=== PATIENT | male | born 1965 | race African-American/Black ===

== ENCOUNTER 2022-10-27 06:04 | Inpatient (IN) | payer OTHER ==
[~2022-10-27] VITALS: Ht 172.7 cm; Wt 78.9 kg
[2022-10-27] MEDS ORDERED: SODIUM CHLORIDE 0.9% 1000ML 1,000 ML IV STA (06:17)
[2022-10-27] MEDS ORDERED: DICYCLOMINE HCL 20 MG/2 ML VIAL IM ONE (06:30)
[2022-10-27] MEDS: ONDANSETRON HCL INJ 2MG/ML 2ML 2 MG/ML VIAL IV PRN ×2 (06:40→09:55)
[2022-10-27 06:52] LABS: BASOPHILS # (AUTO) 0.1 (0.0-0.1); BASOPHILS % 0.4 % (0.0-1.0); EOSINOPHILS # (AUTO) 0.1 (0.0-0.4); EOSINOPHILS % 0.6 % (0.0-6.0); HEMATOCRIT 35.4 % (38.2-49.6); HEMOGLOBIN 11.8 g/dL (14.0-18.0); LYMPHOCYTES % 5.4 % (18.0-39.1); MEAN CORPUSCULAR HEMOGLOBIN 29.1 pg (28-32); MEAN CORPUSCULAR HGB CONC 33.3 g/dL (31-35); MEAN CORPUSCULAR VOLUME 87.4 fL (81-99); MONOCYTES # (AUTO) 1.1 (0.2-0.8); MONOCYTES % 5.6 % (4.4-11.3); NEUTROPHILS # (AUTO) 16.6 (2.1-6.9); NEUTROPHILS % 87.5 % (38.7-80.0); PLATELET COUNT 180 x10e3/uL (140-360); RED BLOOD COUNT 4.05 x10e6/uL (4.3-5.7); RED CELL DISTRIBUTION WIDTH 13.8 % (11.7-14.4)
[2022-10-27 07:07] LABS: ALBUMIN 3.2 g/dL (3.5-5.0); ALBUMIN/GLOBULIN RATIO 0.8 (0.8-2.0); ANION GAP 19.9 mmol/L (8-16); CALCIUM 8.9 mg/dL (8.4-10.2); CREATININE, SERUM 2.29 mg/dL (0.72-1.25); POTASSIUM 3.9 mmol/L (3.5-5.1)
[2022-10-27 07:10] LABS: CLARITY,URINE CLEAR (CLEAR); COLOR,URINE YELLOW (YELLOW); LEUKOCYTE ESTERASE ,URINE NEGATIVE (NEGATIVE); NITRITE,URINE NEGATIVE (NEGATIVE)
[2022-10-27 07:11] LABS: KETONES,URINE TRACE (NEGATIVE); PROTEIN,URINE DIPSTICK >=300 (NEGATIVE); URINE UROBILINOGEN 0.2 mg/dL (0.2 - 1)
[2022-10-27 07:34] LABS: RBC,URINE 0-5 /HPF (0-5); WBC,URINE (MAN) 0-5 /HPF (0-5)
[2022-10-27 07:35] LABS: BACTERIA,URINE MODERATE /HPF; EPITHELIAL CELLS,URINE RARE /LPF
[2022-10-27] MEDS: FENTANYL CITRATE/PF 100MCG/2 ML INJ IV PRN ×2 (08:02→12:01)
[2022-10-27] MEDS ORDERED: PIPERACILLIN/TAZOBACTAM 4.5 GM in SODIUM CHLORIDE 0.9% 100 ML IV STA (09:19)
[2022-10-27] MEDS ORDERED: SODIUM CHLORIDE 0.9% 1000ML 1,000 ML IV SCH (09:45)
[2022-10-27] MEDS ORDERED: LACTATED RINGER'S 1,000 ML INJ ONE (09:45)
[2022-10-27] MEDS ORDERED: ONDANSETRON HCL INJ 2MG/ML 2ML 2 MG/ML VIAL IV PRN (09:45)
[2022-10-27] MEDS: Morphine 4mg INJECTION 4 MG/ML INJ IV PRN ×4 (09:55→23:03)
[2022-10-27] MEDS: LACTATED RINGER'S 1,000 ML INJ SCH ×4 (09:55→23:03)
[2022-10-27] MEDS ORDERED: IOPAMIDOL 370 MG/ML 100 ML INFUS..BTL INJ ONE (11:51)
[2022-10-27 12:40] VITALS: BP 155/81
[2022-10-27] MEDS ORDERED: FUROSEMIDE40 MG PO (12:40)
[2022-10-27] MEDS ORDERED: CHOLECALCIFEROL1 GM PO (12:40)
[2022-10-27] MEDS ORDERED: SODIUM BICARBO650 MG PO (12:40)
[2022-10-27] MEDS ORDERED: SULFASALAZINE500 MG PO (12:40)
[2022-10-27] MEDS ORDERED: ATORVASTATIN CA20 MG PO (12:40)
[2022-10-27] MEDS ORDERED: CARVEDILOL12.5 MG PO (12:40)
[2022-10-27] MEDS ORDERED: AMLODIPINE BESY10 MG PO (12:41)
[2022-10-27] MEDS ORDERED: LOSARTAN POTAS100 MG PO (12:41)
[2022-10-27 13:18] VITALS: BP 155/81
[2022-10-27 16:00] VITALS: BP 153/82
[2022-10-27 20:00] VITALS: BP 156/83
[2022-10-27 21:00] VITALS: BP 156/83
[2022-10-28] VITALS (7 sets, daily range): BP systolic 100–132; BP diastolic 65–82
[2022-10-28 02:29] LABS: % IRON SATURATION 11 % (15-50); IRON 26 ug/dL (65-175); TOTAL IRON BINDING CAPACITY 234 ug/dL (261-478); TRANSFERRIN 167 mg/dL (174-364)
[2022-10-28] MEDS ORDERED: CYANOCOBALAMIN INJ 1,000 MCG/ML VIAL IM ONE (03:30)
[2022-10-28] MEDS: LACTATED RINGER'S 1,000 ML INJ SCH ×2 (04:02→05:49)
[2022-10-28 05:12] LABS: BASOPHILS # (AUTO) 0.1 (0.0-0.1); BASOPHILS % 0.4 % (0.0-1.0); EOSINOPHILS % 0.1 % (0.0-6.0); HEMATOCRIT 31.3 % (38.2-49.6); HEMOGLOBIN 10.7 g/dL (14.0-18.0); LYMPHOCYTES # (AUTO) 0.6 (1.0-3.2); LYMPHOCYTES % 2.7 % (18.0-39.1); MEAN CORPUSCULAR HEMOGLOBIN 29.6 pg (28-32); MEAN CORPUSCULAR HGB CONC 34.2 g/dL (31-35); MEAN CORPUSCULAR VOLUME 86.7 fL (81-99); MONOCYTES # (AUTO) 0.8 (0.2-0.8); MONOCYTES % 3.8 % (4.4-11.3); NEUTROPHILS # (AUTO) 18.9 (2.1-6.9); NEUTROPHILS % 92.4 % (38.7-80.0); PLATELET COUNT 125 x10e3/uL (140-360); RED BLOOD COUNT 3.61 x10e6/uL (4.3-5.7); RED CELL DISTRIBUTION WIDTH 14.3 % (11.7-14.4)
[2022-10-28 05:35] LABS: ANION GAP 18.2 mmol/L (8-16); CALCIUM 7.5 mg/dL (8.4-10.2); CREATININE, SERUM 2.23 mg/dL (0.72-1.25); POTASSIUM 4.2 mmol/L (3.5-5.1)
[2022-10-28 06:02] LABS: BAND NEUTROPHILS % (MANUAL) 5 %; LYMPHOCYTES % (MANUAL) 2 % (19-48); MONOCYTES % (MANUAL) 1 % (3.4-9.0); NEUTROPHILS % (MANUAL) 91 % (40-74); PLATELET ESTIMATE SLIGHTLY DECREASED; PLATELET MORPHOLOGY COMMENT NORMAL; RBC MORPHOLOGY COMMENT NORMAL
[2022-10-28] MEDS: Morphine 4mg INJECTION 4 MG/ML INJ IV PRN ×4 (06:15→23:43)
[2022-10-28] MEDS: SODIUM CHLORIDE 0.45% 1,000 ML IV SCH ×4 (06:46→23:43)
[2022-10-28] MEDS: IRON SUCROSE 100 MG in SODIUM CHLORIDE 0.9% 100 ML IV SCH (08:51)
[2022-10-28] MEDS ORDERED: CYANOCOBALAMIN INJ 1,000 MCG/ML VIAL IM SCH (09:00)
[2022-10-29] MEDS ORDERED: LACTATED RINGER'S 1,000 ML INJ ONE (00:30)
[2022-10-29] MEDS: LACTATED RINGER'S 1,000 ML INJ SCH ×3 (01:02→08:36)
[2022-10-29 04:00] VITALS: BP 110/68
[2022-10-29 06:16] LABS: ANION GAP 18.2 mmol/L (8-16); CREATININE, SERUM 3.57 mg/dL (0.72-1.25); POTASSIUM 4.2 mmol/L (3.5-5.1)
[2022-10-29 06:19] LABS: CALCIUM 6.4 mg/dL (8.4-10.2)
[2022-10-29 07:52] VITALS: BP 103/64
[2022-10-29] MEDS ORDERED: CALCIUM GLUC 1 G/50 ML NACL 100 ML IV ONE ×2 (08:00→11:00)
[2022-10-29] MEDS: IRON SUCROSE 100 MG in SODIUM CHLORIDE 0.9% 100 ML IV SCH (08:35)
[2022-10-29] MEDS: CYANOCOBALAMIN INJ 1,000 MCG/ML VIAL IM SCH (08:35)
[2022-10-29 11:55] VITALS: BP 120/69
[2022-10-29] MEDS ORDERED: CALCIUM GLUC 1 G/50 ML NACL 50 ML IV ONE (15:30)
[2022-10-29 16:23] VITALS: BP 136/70
[2022-10-29] MEDS: PENTOXIFYLLINE 400 MG TAB CR PO SCH (17:15)
[2022-10-29] MEDS: FUROSEMIDE INJ 10 MG/ML 4 ML VIAL IV NR (17:16)
[2022-10-29] MEDS: SODIUM BICARBONATE 650 MG TAB PO SCH ×2 (17:16→21:13)
[2022-10-29] MEDS: ACETYLCYSTEINE 200 MG/ML 4ML VIAL PO SCH (17:17)
[2022-10-29 18:13] LABS: CREATININE,URINE RANDOM 135.86 mg/dL (63-166); SODIUM,URINE 31 mmol/L; TOTAL PROTEIN, URINE 97.2 mg/dL (1-14)
[2022-10-29 20:00] VITALS: BP 136/71
[2022-10-29 20:03] LABS: EOSINOPHIL SMEAR,URINE NONE SEEN (NONE SEEN)
[2022-10-29] MEDS: ZOLPIDEM TARTRATE 5 MG TAB PO PRN (22:45)
[2022-10-30 04:00] VITALS: BP 134/88
[2022-10-30] MEDS: SODIUM BICARBONATE 650 MG TAB PO SCH ×3 (05:31→23:50)
[2022-10-30 06:45] LABS: BASOPHILS # (AUTO) 0.1 (0.0-0.1); BASOPHILS % 0.3 % (0.0-1.0); EOSINOPHILS # (AUTO) 0.1 (0.0-0.4); EOSINOPHILS % 0.4 % (0.0-6.0); HEMOGLOBIN 10.1 g/dL (14.0-18.0); LYMPHOCYTES # (AUTO) 0.6 (1.0-3.2); MEAN CORPUSCULAR HEMOGLOBIN 28.9 pg (28-32); MEAN CORPUSCULAR HGB CONC 31.6 g/dL (31-35); MEAN CORPUSCULAR VOLUME 91.7 fL (81-99); MONOCYTES # (AUTO) 1.1 (0.2-0.8); MONOCYTES % 4.2 % (4.4-11.3); NEUTROPHILS # (AUTO) 24.6 (2.1-6.9); NEUTROPHILS % 91.4 % (38.7-80.0); PLATELET COUNT 151 x10e3/uL (140-360); RED BLOOD COUNT 3.49 x10e6/uL (4.3-5.7); RED CELL DISTRIBUTION WIDTH 14.6 % (11.7-14.4)
[2022-10-30 08:23] LABS: ALBUMIN 1.9 g/dL (3.5-5.0); ALBUMIN/GLOBULIN RATIO 0.4 (0.8-2.0); ANION GAP 19.6 mmol/L (8-16); CREATININE, SERUM 3.77 mg/dL (0.72-1.25); POTASSIUM 3.6 mmol/L (3.5-5.1)
[2022-10-30 08:25] VITALS: BP 130/77
[2022-10-30 08:29] LABS: CALCIUM 6.8 mg/dL (8.4-10.2)
[2022-10-30] MEDS: CYANOCOBALAMIN INJ 1,000 MCG/ML VIAL IM SCH (09:36)
[2022-10-30] MEDS: ACETYLCYSTEINE 200 MG/ML 4ML VIAL PO SCH ×2 (09:36→17:02)
[2022-10-30] MEDS: PENTOXIFYLLINE 400 MG TAB CR PO SCH ×2 (09:37→17:01)
[2022-10-30] MEDS: IRON SUCROSE 100 MG in SODIUM CHLORIDE 0.9% 100 ML IV SCH (09:38)
[2022-10-30] MEDS ORDERED: POTASSIUM CHLORIDE 20 MEQ in LACTATED RINGER'S 1,000 ML INJ SCH (10:30)
[2022-10-30] MEDS ORDERED: FUROSEMIDE INJ 10 MG/ML 4 ML VIAL IV NR (10:30)
[2022-10-30 10:33] LABS: BAND NEUTROPHILS % (MANUAL) 10 %; EOSINOPHILS % (MANUAL) 1 % (0-7); LYMPHOCYTES % (MANUAL) 6 % (19-48); MONOCYTES % (MANUAL) 1 % (3.4-9.0); NEUTROPHILS % (MANUAL) 82 % (40-74); NUCLEATED RED BLOOD CELLS 2; PLATELET ESTIMATE ADEQUATE; PLATELET MORPHOLOGY COMMENT NORMAL
[2022-10-30] MEDS ORDERED: MAGNESIUM SULFATE 2GM/50ML 50 ML IV ONE ×2 (10:45→14:00)
[2022-10-30 11:11] VITALS: BP 132/74
[2022-10-30] MEDS: FUROSEMIDE INJ 10 MG/ML 4 ML VIAL IV NR (11:26)
[2022-10-30] MEDS ORDERED: CALCIUM GLUCONATE 10% INJ 9.3 MEQ in SODIUM CHLORIDE 0.9% 100 ML IV ONE (13:00)
[2022-10-30] MEDS: ALBUMIN 25% 25GM 100ML 0.25 GM/ML BTL IV SCH ×2 (15:20→23:51)
[2022-10-30 15:23] LABS: ANION GAP 22.8 mmol/L (8-16); CREATININE, SERUM 3.62 mg/dL (0.72-1.25); POTASSIUM 3.8 mmol/L (3.5-5.1)
[2022-10-30 15:25] VITALS: BP 163/84
[2022-10-30] MEDS ORDERED: FUROSEMIDE INJ 10 MG/ML 4 ML VIAL IV ONE (16:45)
[2022-10-30] MEDS: POTASSIUM CHLORIDE 20 MEQ in LACTATED RINGER'S 1,000 ML INJ SCH ×2 (18:35→23:54)
[2022-10-30 20:00] VITALS: BP 142/67
[2022-10-30] MEDS: ZOLPIDEM TARTRATE 5 MG TAB PO PRN (23:50)
[2022-10-30] MEDS: ONDANSETRON HCL INJ 2MG/ML 2ML 2 MG/ML VIAL IV PRN (23:50)
[2022-10-31] VITALS (8 sets, daily range): BP systolic 140–158; BP diastolic 72–79
[2022-10-31] MEDS: SODIUM BICARBONATE 650 MG TAB PO SCH ×3 (05:13→22:22)
[2022-10-31 05:31] LABS: BASOPHILS # (AUTO) 0.1 (0.0-0.1); BASOPHILS % 0.3 % (0.0-1.0); EOSINOPHILS # (AUTO) 0.1 (0.0-0.4); EOSINOPHILS % 0.2 % (0.0-6.0); HEMATOCRIT 27.7 % (38.2-49.6); HEMOGLOBIN 8.8 g/dL (14.0-18.0); LYMPHOCYTES # (AUTO) 0.8 (1.0-3.2); LYMPHOCYTES % 2.6 % (18.0-39.1); MEAN CORPUSCULAR HEMOGLOBIN 29.5 pg (28-32); MEAN CORPUSCULAR HGB CONC 31.8 g/dL (31-35); MONOCYTES % 6.8 % (4.4-11.3); NEUTROPHILS # (AUTO) 25.6 (2.1-6.9); NEUTROPHILS % 88.5 % (38.7-80.0); PLATELET COUNT 160 x10e3/uL (140-360); RED BLOOD COUNT 2.98 x10e6/uL (4.3-5.7); RED CELL DISTRIBUTION WIDTH 15.2 % (11.7-14.4)
[2022-10-31 06:06] LABS: ALBUMIN 2.6 g/dL (3.5-5.0); ALBUMIN/GLOBULIN RATIO 0.7 (0.8-2.0); ANION GAP 24.8 mmol/L (8-16); CALCIUM 7.2 mg/dL (8.4-10.2); CREATININE, SERUM 3.35 mg/dL (0.72-1.25); PHOSPHORUS 4.1 MG/DL (2.3-4.7); POTASSIUM 3.8 mmol/L (3.5-5.1)
[2022-10-31 06:44] LABS: BAND NEUTROPHILS % (MANUAL) 2 %; LYMPHOCYTES % (MANUAL) 4 % (19-48); MONOCYTES % (MANUAL) 11 % (3.4-9.0); NEUTROPHILS % (MANUAL) 83 % (40-74); PLATELET ESTIMATE ADEQUATE; PLATELET MORPHOLOGY COMMENT NORMAL; RBC MORPHOLOGY COMMENT NORMAL
[2022-10-31] MEDS: INSULIN GLARGINE 100 UNITS/ML VIAL SQ SCH ×2 (09:00→21:00)
[2022-10-31] MEDS ORDERED: Vancomycin IV 1 GM in SODIUM CHLORIDE 0.9% 250ML 250 ML IV ONE ×2 (09:00→16:30)
[2022-10-31] MEDS: ACETYLCYSTEINE 200 MG/ML 4ML VIAL PO SCH (09:00)
[2022-10-31] MEDS: CYANOCOBALAMIN INJ 1,000 MCG/ML VIAL IM SCH (09:10)
[2022-10-31] MEDS: PENTOXIFYLLINE 400 MG TAB CR PO SCH ×2 (09:10→17:25)
[2022-10-31] MEDS: ALBUMIN 25% 25GM 100ML 0.25 GM/ML BTL IV SCH (09:34)
[2022-10-31] MEDS: CARVEDILOL 12.5 MG TAB PO SCH ×2 (09:43→17:26)
[2022-10-31] MEDS: INSULIN LISPRO 100 UNIT/1 ML 3ML VIAL SQ SCH ×3 (11:30→21:00)
[2022-10-31] MEDS: IRON SUCROSE 100 MG in SODIUM CHLORIDE 0.9% 100 ML IV SCH (12:48)
[2022-10-31] MEDS: POTASSIUM CHLORIDE 20 MEQ in LACTATED RINGER'S 1,000 ML INJ SCH ×2 (17:29→18:48)
[2022-11-01] VITALS (7 sets, daily range): BP systolic 126–149; BP diastolic 63–75
[2022-11-01] MEDS: SODIUM BICARBONATE 650 MG TAB PO SCH ×3 (05:31→23:24)
[2022-11-01] MEDS: POTASSIUM CHLORIDE 20 MEQ in LACTATED RINGER'S 1,000 ML INJ SCH ×2 (05:32→15:00)
[2022-11-01 05:36] LABS: BASOPHILS # (AUTO) 0.1 (0.0-0.1); BASOPHILS % 0.3 % (0.0-1.0); EOSINOPHILS # (AUTO) 0.2 (0.0-0.4); EOSINOPHILS % 0.7 % (0.0-6.0); HEMATOCRIT 27.3 % (38.2-49.6); HEMOGLOBIN 9.3 g/dL (14.0-18.0); LYMPHOCYTES # (AUTO) 0.6 (1.0-3.2); LYMPHOCYTES % 2.7 % (18.0-39.1); MEAN CORPUSCULAR HGB CONC 34.1 g/dL (31-35); MONOCYTES # (AUTO) 1.8 (0.2-0.8); MONOCYTES % 7.8 % (4.4-11.3); NEUTROPHILS # (AUTO) 19.6 (2.1-6.9); NEUTROPHILS % 83.6 % (38.7-80.0); PLATELET COUNT 164 x10e3/uL (140-360); RED BLOOD COUNT 3.21 x10e6/uL (4.3-5.7); RED CELL DISTRIBUTION WIDTH 14.7 % (11.7-14.4)
[2022-11-01 06:12] LABS: ALBUMIN 2.3 g/dL (3.5-5.0); ALBUMIN/GLOBULIN RATIO 0.6 (0.8-2.0); ANION GAP 15.5 mmol/L (8-16); CALCIUM 7.5 mg/dL (8.4-10.2); CREATININE, SERUM 2.5 mg/dL (0.72-1.25); PHOSPHORUS 2.7 MG/DL (2.3-4.7); POTASSIUM 3.5 mmol/L (3.5-5.1)
[2022-11-01 07:06] LABS: BAND NEUTROPHILS % (MANUAL) 2 %; METAMYELOCYTES % (MANUAL) 3 % (0-0); MONOCYTES % (MANUAL) 7 % (3.4-9.0); MYELOCYTES % (MANUAL) 4 % (0-0); NEUTROPHILS % (MANUAL) 84 % (40-74); PLATELET ESTIMATE ADEQUATE; PLATELET MORPHOLOGY COMMENT NORMAL; RBC MORPHOLOGY COMMENT NORMAL
[2022-11-01] MEDS: INSULIN LISPRO 100 UNIT/1 ML 3ML VIAL SQ SCH ×4 (07:30→21:00)
[2022-11-01] MEDS: PENTOXIFYLLINE 400 MG TAB CR PO SCH ×2 (09:17→16:53)
[2022-11-01] MEDS: CARVEDILOL 12.5 MG TAB PO SCH ×2 (09:18→17:04)
[2022-11-01] MEDS: CYANOCOBALAMIN INJ 1,000 MCG/ML VIAL IM SCH (09:18)
[2022-11-01 11:58] LABS: INR 1.21; PROTHROMBIN TIME 15.5 seconds (11.9-14.5)
[2022-11-01] MEDS ORDERED: LIDOCAINE 1% 10 ML MULTIDOSE VIAL IJ ONE (13:52)
[2022-11-01] MEDS ORDERED: SODIUM CHLORIDE 0.9% 250ML 250 ML ONE (13:52)
[2022-11-01] MEDS: IRON SUCROSE 100 MG in SODIUM CHLORIDE 0.9% 100 ML IV SCH (18:06)
[2022-11-01] MEDS ORDERED: DEXTROSE 5%/0.45% SOD CHL 1,000 ML IV ONE ×2 (18:15→19:00)
[2022-11-01] MEDS: INSULIN GLARGINE 100 UNITS/ML VIAL SQ SCH (21:00)
[2022-11-02] VITALS (8 sets, daily range): BP systolic 131–160; BP diastolic 70–82
[2022-11-02] MEDS: POTASSIUM CHLORIDE 20 MEQ in LACTATED RINGER'S 1,000 ML INJ SCH (02:38)
[2022-11-02 05:52] LABS: BASOPHILS # (AUTO) 0.2 (0.0-0.1); BASOPHILS % 0.8 % (0.0-1.0); EOSINOPHILS # (AUTO) 0.2 (0.0-0.4); EOSINOPHILS % 0.9 % (0.0-6.0); HEMATOCRIT 27.6 % (38.2-49.6); HEMOGLOBIN 9.3 g/dL (14.0-18.0); LYMPHOCYTES # (AUTO) 0.9 (1.0-3.2); MEAN CORPUSCULAR HEMOGLOBIN 28.9 pg (28-32); MEAN CORPUSCULAR HGB CONC 33.7 g/dL (31-35); MEAN CORPUSCULAR VOLUME 85.7 fL (81-99); MONOCYTES % 8.5 % (4.4-11.3); NEUTROPHILS # (AUTO) 18.6 (2.1-6.9); NEUTROPHILS % 80.8 % (38.7-80.0); PLATELET COUNT 161 x10e3/uL (140-360); RED BLOOD COUNT 3.22 x10e6/uL (4.3-5.7); RED CELL DISTRIBUTION WIDTH 15.1 % (11.7-14.4)
[2022-11-02] MEDS: SODIUM BICARBONATE 650 MG TAB PO SCH ×3 (06:12→21:25)
[2022-11-02 06:21] LABS: ALBUMIN 2.1 g/dL (3.5-5.0); ALBUMIN/GLOBULIN RATIO 0.5 (0.8-2.0); ANION GAP 18.8 mmol/L (8-16); CALCIUM 7.6 mg/dL (8.4-10.2); CREATININE, SERUM 2.42 mg/dL (0.72-1.25); PHOSPHORUS 3.4 MG/DL (2.3-4.7); POTASSIUM 3.8 mmol/L (3.5-5.1)
[2022-11-02 07:14] LABS: BAND NEUTROPHILS % (MANUAL) 2 %; EOSINOPHILS % (MANUAL) 1 % (0-7); LYMPHOCYTES % (MANUAL) 4 % (19-48); MONOCYTES % (MANUAL) 3 % (3.4-9.0); NEUTROPHILS % (MANUAL) 89 % (40-74)
[2022-11-02 07:15] LABS: PLATELET ESTIMATE ADEQUATE; PLATELET MORPHOLOGY COMMENT NORMAL; RBC MORPHOLOGY COMMENT NORMAL; TOXIC GRANULATION MODERATE
[2022-11-02] MEDS: INSULIN LISPRO 100 UNIT/1 ML 3ML VIAL SQ SCH ×4 (07:30→21:00)
[2022-11-02] MEDS: PENTOXIFYLLINE 400 MG TAB CR PO SCH ×2 (09:54→16:17)
[2022-11-02] MEDS: CARVEDILOL 12.5 MG TAB PO SCH ×2 (09:54→16:17)
[2022-11-02] MEDS: CYANOCOBALAMIN INJ 1,000 MCG/ML VIAL IM SCH (09:54)
[2022-11-02] MEDS: POTASSIUM CHLORIDE 20 MEQ in DEXTROSE 5%/0.45% SOD CHL 1,000 ML IV SCH ×2 (11:39→21:24)
[2022-11-02] MEDS ORDERED: CENTRAL TPN FORMULA 1 BAG IV SCH (20:00)
[2022-11-02] MEDS: INSULIN GLARGINE 100 UNITS/ML VIAL SQ SCH (21:00)
[2022-11-03] VITALS (8 sets, daily range): BP systolic 143–164; BP diastolic 70–83
[2022-11-03 05:34] LABS: BASOPHILS # (AUTO) 0.1 (0.0-0.1); BASOPHILS % 0.3 % (0.0-1.0); EOSINOPHILS # (AUTO) 0.3 (0.0-0.4); EOSINOPHILS % 1.1 % (0.0-6.0); HEMATOCRIT 28.9 % (38.2-49.6); HEMOGLOBIN 9.1 g/dL (14.0-18.0); LYMPHOCYTES % 3.4 % (18.0-39.1); MEAN CORPUSCULAR HGB CONC 31.5 g/dL (31-35); MONOCYTES # (AUTO) 1.7 (0.2-0.8); NEUTROPHILS # (AUTO) 24.7 (2.1-6.9); NEUTROPHILS % 85.3 % (38.7-80.0); PLATELET COUNT 190 x10e3/uL (140-360); RED BLOOD COUNT 3.14 x10e6/uL (4.3-5.7); RED CELL DISTRIBUTION WIDTH 15.5 % (11.7-14.4)
[2022-11-03 05:50] LABS: ALBUMIN 2.2 g/dL (3.5-5.0); ALBUMIN/GLOBULIN RATIO 0.5 (0.8-2.0); ANION GAP 13.4 mmol/L (8-16); CALCIUM 8.2 mg/dL (8.4-10.2); CREATININE, SERUM 2.28 mg/dL (0.72-1.25); PHOSPHORUS 2.4 MG/DL (2.3-4.7); POTASSIUM 4.4 mmol/L (3.5-5.1)
[2022-11-03] MEDS: SODIUM BICARBONATE 650 MG TAB PO SCH ×3 (06:24→23:04)
[2022-11-03] MEDS: INSULIN GLARGINE 100 UNITS/ML VIAL SQ SCH (06:36)
[2022-11-03 06:43] LABS: BAND NEUTROPHILS % (MANUAL) 4 %; EOSINOPHILS % (MANUAL) 2 % (0-7); LYMPHOCYTES % (MANUAL) 6 % (19-48); MONOCYTES % (MANUAL) 3 % (3.4-9.0); NEUTROPHILS % (MANUAL) 85 % (40-74); NUCLEATED RED BLOOD CELLS 1
[2022-11-03 06:44] LABS: PLATELET ESTIMATE ADEQUATE; PLATELET MORPHOLOGY COMMENT NORMAL; RBC MORPHOLOGY COMMENT NORMAL; TOXIC GRANULATION SLIGHT
[2022-11-03] MEDS: INSULIN LISPRO 100 UNIT/1 ML 3ML VIAL SQ SCH ×3 (08:24→16:17)
[2022-11-03] MEDS: PENTOXIFYLLINE 400 MG TAB CR PO SCH ×2 (08:53→17:04)
[2022-11-03] MEDS: CARVEDILOL 12.5 MG TAB PO SCH ×2 (08:53→17:05)
[2022-11-03] MEDS: CYANOCOBALAMIN INJ 1,000 MCG/ML VIAL IM SCH (08:54)
[2022-11-04] VITALS (8 sets, daily range): BP systolic 125–159; BP diastolic 69–82
[2022-11-04 04:59] LABS: BASOPHILS # (AUTO) 0.2 (0.0-0.1); BASOPHILS % 0.5 % (0.0-1.0); EOSINOPHILS # (AUTO) 0.5 (0.0-0.4); EOSINOPHILS % 1.5 % (0.0-6.0); HEMOGLOBIN 8.1 g/dL (14.0-18.0); LYMPHOCYTES # (AUTO) 1.6 (1.0-3.2); LYMPHOCYTES % 4.9 % (18.0-39.1); MEAN CORPUSCULAR HEMOGLOBIN 29.1 pg (28-32); MEAN CORPUSCULAR HGB CONC 33.8 g/dL (31-35); MEAN CORPUSCULAR VOLUME 86.3 fL (81-99); MONOCYTES # (AUTO) 1.9 (0.2-0.8); MONOCYTES % 5.6 % (4.4-11.3); NEUTROPHILS # (AUTO) 27.5 (2.1-6.9); NEUTROPHILS % 83.6 % (38.7-80.0); PLATELET COUNT 155 x10e3/uL (140-360); RED BLOOD COUNT 2.78 x10e6/uL (4.3-5.7); RED CELL DISTRIBUTION WIDTH 14.8 % (11.7-14.4)
[2022-11-04 05:23] LABS: ALBUMIN 1.9 g/dL (3.5-5.0); ALBUMIN/GLOBULIN RATIO 0.5 (0.8-2.0); ANION GAP 11.6 mmol/L (8-16); CREATININE, SERUM 2.08 mg/dL (0.72-1.25); POTASSIUM 3.6 mmol/L (3.5-5.1)
[2022-11-04] MEDS: SODIUM BICARBONATE 650 MG TAB PO SCH ×3 (06:22→20:22)
[2022-11-04] MEDS: INSULIN LISPRO 100 UNIT/1 ML 3ML VIAL SQ SCH ×3 (07:30→16:30)
[2022-11-04] MEDS: INSULIN GLARGINE 100 UNITS/ML VIAL SQ SCH (09:03)
[2022-11-04] MEDS: PENTOXIFYLLINE 400 MG TAB CR PO SCH ×2 (09:08→17:22)
[2022-11-04] MEDS: CYANOCOBALAMIN INJ 1,000 MCG/ML VIAL IM SCH (09:09)
[2022-11-04] MEDS: CARVEDILOL 12.5 MG TAB PO SCH ×2 (09:09→17:22)
[2022-11-05 00:17] VITALS: BP 149/82
[2022-11-05] MEDS: SODIUM BICARBONATE 650 MG TAB PO SCH (05:05)
[2022-11-05 05:40] VITALS: BP 135/67
[2022-11-05 07:13] LABS: BASOPHILS # (AUTO) 0.1 (0.0-0.1); BASOPHILS % 0.2 % (0.0-1.0); EOSINOPHILS # (AUTO) 0.4 (0.0-0.4); EOSINOPHILS % 1.3 % (0.0-6.0); HEMATOCRIT 25.4 % (38.2-49.6); HEMOGLOBIN 8.1 g/dL (14.0-18.0); LYMPHOCYTES # (AUTO) 1.2 (1.0-3.2); MEAN CORPUSCULAR HEMOGLOBIN 28.8 pg (28-32); MEAN CORPUSCULAR HGB CONC 31.9 g/dL (31-35); MEAN CORPUSCULAR VOLUME 90.4 fL (81-99); MONOCYTES # (AUTO) 1.8 (0.2-0.8); NEUTROPHILS # (AUTO) 25.1 (2.1-6.9); NEUTROPHILS % 84.9 % (38.7-80.0); PLATELET COUNT 158 x10e3/uL (140-360); RED BLOOD COUNT 2.81 x10e6/uL (4.3-5.7); RED CELL DISTRIBUTION WIDTH 14.5 % (11.7-14.4)
[2022-11-05 07:35] LABS: ALBUMIN/GLOBULIN RATIO 0.5 (0.8-2.0); ANION GAP 13.4 mmol/L (8-16); CALCIUM 8.2 mg/dL (8.4-10.2); CREATININE, SERUM 2.11 mg/dL (0.72-1.25); POTASSIUM 3.4 mmol/L (3.5-5.1)
[2022-11-05] MEDS ORDERED: ONDANSETRON ODT4 MG PO (07:49)
[2022-11-05] MEDS ORDERED: PANTOPRAZOLE SO40 MG PO (07:49)
[2022-11-05 07:57] VITALS: BP 136/73
[2022-11-05 08:17] VITALS: BP 136/73
[2022-11-05] MEDS: PENTOXIFYLLINE 400 MG TAB CR PO SCH (08:27)
[2022-11-05] MEDS: CARVEDILOL 12.5 MG TAB PO SCH (08:28)
[2022-11-05] MEDS: CYANOCOBALAMIN INJ 1,000 MCG/ML VIAL IM SCH (08:34)
[2022-11-05 12:22] LABS: LYMPHOCYTES % (MANUAL) 4 % (19-48); MONOCYTES % (MANUAL) 5 % (3.4-9.0); NEUTROPHILS % (MANUAL) 91 % (40-74); PLATELET ESTIMATE ADEQUATE
[2022-11-05 12:23] LABS: PLATELET MORPHOLOGY COMMENT NORMAL; RBC MORPHOLOGY COMMENT NORMAL
== END 2022-11-05 09:18 | disposition home or self-care (01) | DRG 439 ==
LOC: ER 06:19 → ERHOLD 09:37 → MED/SURG2 12:11
PROVIDERS: ADMIT Internal Medicine; ATTEND Internal Medicine
PROC: 02HV33Z Insertion of Infusion Device into Superior Vena Cava, Percutaneous Approach (ICD-10-PCS; principal; 2022-11-03)
DX: K85.91 Acute pancreatitis with uninfected necrosis, unspecified (principal); E87.20 Acidosis, unspecified; N17.9 Acute kidney failure, unspecified; N39.0 Urinary tract infection, site not specified; D64.9 Anemia, unspecified; E78.5 Hyperlipidemia, unspecified; E11.22 Type 2 diabetes mellitus with diabetic chronic kidney disease; I12.9 Hypertensive chronic kidney disease with stage 1 through stage 4 chronic kidney disease, or unspecified chronic kidney disease; E11.69 Type 2 diabetes mellitus with other specified complication; E78.2 Mixed hyperlipidemia; K85.21 Alcohol induced acute pancreatitis with uninfected necrosis; F10.20 Alcohol dependence, uncomplicated; Z20.822 Contact with and (suspected) exposure to COVID-19; N18.32 Chronic kidney disease, stage 3b
CPT/HCPCS: 36415; 36556; 71045; 71046; 74176; 74177; 74470; 76937; 77001; 80048; 80053; 80061; 81001; 81015; 82270; 82378; 82570; 82607; 82746; 82948; 83036; 83540; 83605; 83690; 83735; 84100; 84156; 84300; 84466; 84478; 84484; 85025; 85045; 85610; 86039; 86301; 87040; 93005; 93971; 94799; 96361; 96366; 99252; 99284; C1769; J0295; J0500; J0610; J0692; J1756; J1815; J1940; J2185; J2270; J2405; J2543; J3010; J3370; J3420; J3475; J3480; J7030; J7050; J7121; P9047; Q9967

== ENCOUNTER → 2023-02-24 | Day surgery (SDC) | payer OTHER ==
[~2023-02-24] MED LIST: AMLODIPINE BESY10 MG PO; ATORVASTATIN CA20 MG PO; CARVEDILOL12.5 MG PO; CHOLECALCIFEROL1 GM PO; FAMOTIDINE20 MG PO; FUROSEMIDE40 MG PO; LACTATED RINGER'S 1,000 ML ONE; LIDOCAINE HCL 2% LOCAL INJ 5 ML SDV VIAL INJ ONE; LOSARTAN POTAS100 MG PO; NOVOLOG100 UNIT/1 SC; ONDANSETRON ODT4 MG PO; PANTOPRAZOLE SO40 MG PO; PLAQUENIL200 MG PO; PROPOFOL IV EMULSION 10 MG/ML 20 ML VIAL ONE; SODIUM BICARBO650 MG PO; SULFASALAZINE500 MG PO
[2023-02-24 11:55] VITALS: BP 130/90; PULSE 76; RESP 18; O2SAT 98
== END | disposition home or self-care (01) ==
LOC: OR 09:30
PROVIDERS: ATTEND Internal Medicine Gastroenterology
DX: Z12.11 Encounter for screening for malignant neoplasm of colon (principal); K29.50 Unspecified chronic gastritis without bleeding; K21.9 Gastro-esophageal reflux disease without esophagitis; K31.89 Other diseases of stomach and duodenum; Z79.899 Other long term (current) drug therapy; K44.9 Diaphragmatic hernia without obstruction or gangrene; I48.91 Unspecified atrial fibrillation; E11.22 Type 2 diabetes mellitus with diabetic chronic kidney disease; I12.9 Hypertensive chronic kidney disease with stage 1 through stage 4 chronic kidney disease, or unspecified chronic kidney disease; N18.4 Chronic kidney disease, stage 4 (severe); R63.4 Abnormal weight loss; R35.0 Frequency of micturition; E78.5 Hyperlipidemia, unspecified; M06.9 Rheumatoid arthritis, unspecified; Z88.1 Allergy status to other antibiotic agents; Z01.810 Encounter for preprocedural cardiovascular examination; Z79.4 Long term (current) use of insulin; Z87.19 Personal history of other diseases of the digestive system
CPT/HCPCS: 36415; 43239; 45378; 82948; 88305; 88342; 93005; J2001; J2704; J7121; 88304; 88312

== ENCOUNTER → 2023-03-31 | Day surgery (SDC) | payer OTHER ==
[~2023-03-31] MED LIST changes: +GLUCAGON FOR INJ 1 MG VIAL ONE; +MIDAZOLAM HCL 2 MG/2 ML VIAL ONE
[2023-03-31 11:11] VITALS: TEMP 97.1
[2023-03-31 11:40] VITALS: BP 113/78; PULSE 81; RESP 18; O2SAT 98
== END | disposition home or self-care (01) ==
LOC: OR 08:50
PROVIDERS: ATTEND Internal Medicine Gastroenterology
DX: Z12.11 Encounter for screening for malignant neoplasm of colon (principal); D12.3 Benign neoplasm of transverse colon; D12.4 Benign neoplasm of descending colon; K62.1 Rectal polyp; K57.30 Diverticulosis of large intestine without perforation or abscess without bleeding; K64.8 Other hemorrhoids; R63.4 Abnormal weight loss; R19.8 Other specified symptoms and signs involving the digestive system and abdomen; E78.5 Hyperlipidemia, unspecified; I48.91 Unspecified atrial fibrillation; E11.22 Type 2 diabetes mellitus with diabetic chronic kidney disease; I12.9 Hypertensive chronic kidney disease with stage 1 through stage 4 chronic kidney disease, or unspecified chronic kidney disease; N18.4 Chronic kidney disease, stage 4 (severe); R35.0 Frequency of micturition; M06.9 Rheumatoid arthritis, unspecified; E05.00 Thyrotoxicosis with diffuse goiter without thyrotoxic crisis or storm; Z79.4 Long term (current) use of insulin; Z79.899 Other long term (current) drug therapy; Z87.19 Personal history of other diseases of the digestive system
CPT/HCPCS: 36415; 45380; 45384; 82948; 88305; J1610; J2001; J2250; J2704; J7121